=== PATIENT | male | born 1940 | race Caucasian/White ===

== ENCOUNTER → 2025-06-05 13:57 | Outpatient (REF) | payer MEDICARE, SELFPAY | LOC: RAD 13:57 | PROVIDERS: ATTENDING PHYSICIAN Student in an Organized Health Care Education/Training Program | DX: R93.1 Abnormal findings on diagnostic imaging of heart and coronary circulation (principal); E78.1 Pure hyperglyceridemia | CPT/HCPCS: 75571 ==